=== PATIENT | female | born 1945 | race Caucasian/White ===

== ENCOUNTER 2017-10-11 10:31 | Inpatient (IN) ==
[2017-10-11] MEDS ORDERED: 0.9 % Sodium Chloride 1,000 ML IVC ONE (10:56)
[2017-10-11] MEDS ORDERED: Aspirin 81 MG TAB.CHEW PO ONE (10:56)
[2017-10-11 11:14] LABS: Basophils % 0.5 %; Eosinophils # 0.1 K/mcL (0.0-0.6); Eosinophils % 1.8 %; Hematocrit 45.5 % (35.3-44.9); Immature Granulocytes % 0.3 % (0-4); Immature Platelets 10.5 % (1.1-6.1); Lymphocytes # 1.7 K/mcL (0.6-4.6); Lymphocytes % 26.4 %; Mean Corpuscular Hemoglobin 30.5 pg (28.0-33.3); Mean Corpuscular Volume 92.5 fL (83.0-100.0); Mean Platelet Volume 12.2 fL (9.4-12.4); Monocytes # 0.5 K/mcL (0.0-1.3); Monocytes % 7.7 %; Platelet Count 171 K/mcL (140-400); Red Blood Count 4.92 M/mcL (3.82-4.97); Red Cell Distribution Width 13.2 % (11.5-14.5); Segmented Neutrophils % 63.3 %
[2017-10-11 11:21] LABS: Prothrombin Time 10.9 Seconds (9.4-12.1)
[2017-10-11 11:23] LABS: Activated Partial Thrombo Time 30.6 Seconds (26.0-36.0)
[2017-10-11 11:27] LABS: BUN/Creatinine Ratio 26 (6-26); Blood Urea Nitrogen 22 mg/dL (7-20); Calcium 9.5 mg/dL (8.6-10.8); Carbon Dioxide 23 mEq/L (19-29); Chloride 105 mEq/L (98-109); Glucose 140 mg/dL (70-99); Magnesium 1.9 mg/dL (1.6-2.6); Osmolality,Calculated 292 (280-300); Potassium 4.2 mEq/L (3.5-4.5); Sodium 138 mEq/L (136-145); eGFR For African Americans > 60 (> 60); eGFR For Non-African Americans > 60 (> 60)
--- NOTE | 2017-10-11 11:33 | Emergency Department Note ---
Disposition Clinical Impression: Atrial fibrillation Qualifiers: Atrial fibrillation type: unspecified Qualified Code(s): I48.91 - Unspecified atrial fibrillation Disposition: Admitted As Inpatient Condition: Fair Forms: ED Satisfaction Letter Time of Disposition: 12:14 Arrhythmia/Palpitations HPI - General Chief Complaint: ED Arrhythmia/Palpitations Stated Complaint: A-Fib Time Seen by Provider: 10/11/17 10:40 Source: patient Limitations: no limitations Nursing Notes Reviewed: Yes Vital Signs Reviewed: Yes - History of Present Illness HPI Narrative: 72-year-old female presents to the ED complaining of atrial fibrillation. Patient has never been in this before. She was at her primary care physician's office today just for a wellness visit when they did an EKG and noticed she was in A. fib. Placed here here for further evaluation. Patient states she not complaining of any chest pain. She is having no shortness of breath. 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 She says that she is not having any symptoms no palpitations there is a sent here. She has had any episodes of dizziness or syncope. She has not been nausea vomiting or had any fevers. She has not had any coughing or illnesses leading up to this. Patient is not complaining of any headaches, blurry vision, neck pain, chest pain, shortness of breath, abdominal pain, changes in bowel movements, pain with urination, pain or tingling down the arms or legs, nausea or vomiting, fever, generalized numbness or weakness. - Related Data Home Medications Medication Instructions Recorded Confirmed Lansoprazole [Prevacid] 30 mg PO DAILY 10/11/17 10/11/17 Simvastatin [Zocor] 40 mg PO HS 10/11/17 10/11/17 Valsartan/Hydrochlorothiazide 1 tab PO DAILY 10/11/17 10/11/17 [Diovan Hct 160-12.5 mg Tab] Vit C/E/Zn/Coppr/Lutein/Zeaxan 1 cap PO DAILY 10/11/17 10/11/17 [Preservision Areds 2 Softgel] Allergies Allergy/AdvReac Type Severity Reaction Status Date / Time No Known Allergies Allergy Verified 02/06/17 08:36 Review of Systems: 10 point review of systems done and negative unless otherwise stated in history of present illness. All systems ED: reviewed and negative except as stated. Review of Systems: As Per HPI Constitutional: Denies: fever, chills, weakness, weight change Eyes: Denies: eye pain, eye discharge, vision change Past Medical History - Past Medical History Attestation: Yes The following information was validated with the patient. Medical history: Reports: hyperlipidemia, hypertension Psychiatric history: Reports: no psych history - Social History Smoking Status: Never smoker Smokeless Tobacco Status: No Alcohol use: Reports: rarely Drug use: Reports: none Physical Exam - General Limitations: no limitations General appearance: alert, in no apparent distress - Head Head exam: atraumatic, normocephalic, normal inspection - Eye Eye exam: Present: normal appearance, PERRL, EOMI - ENT ENT exam: normal exam, normal oropharynx, mucous membranes moist - Neck Neck exam: Present: normal inspection, full ROM, trachea midline - Chest Chest inspection: Present: normal inspection, symmetric chest wall rise - Respiratory Respiratory exam: Present: normal lung sounds bilaterally - Cardiovascular Cardiovascular exam: Present: tachycardia, irregular rhythm, normal heart sounds - Abdominal Exam Abdominal exam: Present: soft, Non-Tender. Absent: tenderness, distention, guarding, rebound, rigidity - Extremities Exam Extremities exam: Present: normal inspection, full ROM. Absent: tenderness, pedal edema - Expanded Lower Extremity Exam Neurovascular/Tendon exam: Present: normal capillary refill. Absent: pulse deficit, motor deficit, sensory deficit, tendon deficit Gait: observed and normal - Back Exam Back exam: Present: normal inspection, full ROM. Absent: tenderness, CVA tenderness (R), CVA tenderness (L) - Neurological Exam Neurological exam: Present: alert, oriented X3 - Skin Skin exam: Present: warm Course Course Narrative: 72-year-old female presents to the ED complaining of atrial fibrillation. We will get basic labs including CBC, BMP, troponin, BNP, TSH. We will see a chest x-ray and EKG. This is new onset A. fib so patient most likely will be admitted to the hospitalist service. We will give her a bolus of Cardizem 15 mg here that does not convert her then we will start a Cardizem drip. Patient is okay with this plan. Vital Signs Temperature 98.0 F 10/11/17 10:32 Pulse Rate 145 10/11/17 10:32 Respiratory Rate 18 10/11/17 10:32 Blood Pressure 150/100 10/11/17 10:32 O2 Sat by Pulse Oximetry 98 10/11/17 10:32 Temperature 98.0 F 10/11/17 10:35 Pulse Rate 87 10/11/17 11:35 Respiratory Rate 11 10/11/17 11:35 Blood Pressure 147/84 10/11/17 11:35 O2 Sat by Pulse Oximetry 99 10/11/17 11:35 Oxygen Delivery Oxygen Delivery Room Air Arrhythmia/Palpitations - MDM Narrative Medical decision making narrative: 72-year-old female presents to the ED and atrial fibrillation. This is new onset for her. She has never had this happen to her before. She was at a wellness visit with her primary care physician. She is not complaining of any pain or any chest pain or syncope or dizziness or any symptoms occurring before this. She is having no nausea or vomiting or fevers. At this time we got basic labs she did have an elevated TSH otherwise everything came back normal. EKG did show atrial fibrillation. An chest x-ray was normal. We gave her a 15 mg bolus of Cardizem. She did seem to convert with. Her blood pressure was good after that 130/80. Checking her later EKG she actually was still in atrial fibrillation so we decided to start a Cardizem drip. Patient is okay with this. Patient is admitted to the hospitalist service for further evaluation. I spoke with Dr. Singletary who agreed to admit the patient to their service. Patient is admitted in stable condition. She is on a Cardizem drip at this time. Patient blood pressure is tolerating it well. Chest X-Ray 10/11/17 10:51 IMPRESSION: No acute cardiopulmonary disease D/ / Neil Tobar MD / Neil Tobar MD Interpreting Provider: Neil Tobar MD - Medical Records Medical records reviewed: Yes I reviewed the patient's medical records. - Lab Data Lab results reviewed: Yes I reviewed the patient's lab results. Result diagrams: 10/11/17 11:06 10/11/17 11:06 Lab Results 10/11/17 10/11/17 10/11/17 Range/Units 11:06 11:06 11:06 WBC 6.3 (4.3-11.1) K/mcL RBC 4.92 (3.82-4.97) M/mcL Hgb 15.0 (11.5-15.4) g/dL Hct 45.5 H (35.3-44.9) % MCV 92.5 (83.0-100.0) fL MCH 30.5 (28.0-33.3) pg MCHC 33.0 (31.6-35.5) g/dL RDW 13.2 (11.5-14.5) % Plt Count 171 (140-400) K/mcL MPV 12.2 (9.4-12.4) fL Immature Gran % 0.3 (0-4) % Seg Neutrophils % 63.3 % Lymphocytes % 26.4 % Monocytes % 7.7 % Eosinophils % 1.8 % Basophils % 0.5 % Neutrophils # 4.0 (1.6-8.9) K/mcL Lymphocytes # 1.7 (0.6-4.6) K/mcL Monocytes # 0.5 (0.0-1.3) K/mcL Eosinophils # 0.1 (0.0-0.6) K/mcL Basophils # 0.0 (0.0-0.2) K/mcL Immature Plt Fraction 10.5 H (1.1-6.1) % PT 10.9 (9.4-12.1) Seconds INR 1.0 APTT 30.6 (26.0-36.0) Seconds Sodium 138 (136-145) mEq/L Potassium 4.2 (3.5-4.5) mEq/L Chloride 105 (98-109) mEq/L Carbon Dioxide 23 (19-29) mEq/L BUN 22 H (7-20) mg/dL Creatinine 0.84 (0.57-1.11) mg/dL Est GFR ( Amer) > 60 (> 60) Est GFR (Non-Af Amer) > 60 (> 60) BUN/Creatinine Ratio 26 (6-26) Glucose 140 H (70-99) mg/dL Calculated Osmolality 292 (280-300) Calcium 9.5 (8.6-10.8) mg/dL Magnesium 1.9 (1.6-2.6) mg/dL Troponin I (0-0.03) ng/mL TSH 6.543 H (0.350-4.840) mcIU/mL 10/11/17 Range/Units 11:06 WBC (4.3-11.1) K/mcL RBC (3.82-4.97) M/mcL Hgb (11.5-15.4) g/dL Hct (35.3-44.9) % MCV (83.0-100.0) fL MCH (28.0-33.3) pg MCHC (31.6-35.5) g/dL RDW (11.5-14.5) % Plt Count (140-400) K/mcL MPV (9.4-12.4) fL Immature Gran % (0-4) % Seg Neutrophils % % Lymphocytes % % Monocytes % % Eosinophils % % Basophils % % Neutrophils # (1.6-8.9) K/mcL Lymphocytes # (0.6-4.6) K/mcL Monocytes # (0.0-1.3) K/mcL Eosinophils # (0.0-0.6) K/mcL Basophils # (0.0-0.2) K/mcL Immature Plt Fraction (1.1-6.1) % PT (9.4-12.1) Seconds INR APTT (26.0-36.0) Seconds Sodium (136-145) mEq/L Potassium (3.5-4.5) mEq/L Chloride (98-109) mEq/L Carbon Dioxide (19-29) mEq/L BUN (7-20) mg/dL Creatinine (0.57-1.11) mg/dL Est GFR ( Amer) (> 60) Est GFR (Non-Af Amer) (> 60) BUN/Creatinine Ratio (6-26) Glucose (70-99) mg/dL Calculated Osmolality (280-300) Calcium (8.6-10.8) mg/dL Magnesium (1.6-2.6) mg/dL Troponin I 0.02 (0-0.03) ng/mL TSH (0.350-4.840) mcIU/mL - Radiology Data Radiology results reviewed: Yes I reviewed the patient's radiology results. - EKG Data EKG attestation: Yes I reviewed and interpreted this EKG. EKG results narrative: EKG done at 1039 revealed myself and the attending shows atrial fibrillation with RVR at a rate of 149, QRS 102, QTC 374 with a leftward axis. There is no acute ST changes, no acute T-wave changes. No signs of any heart strain or hypertrophy or any signs of heart block. No signs of WPW/got a syndrome. There is no old EKG comparison this time. We did a second EKG after we thought she converted that showed atrial fibrillation still in RVR but now the rate of 103, QRS 16, QTC 417 with a normal axis there is no other acute changes. This is unchanged other than slowing and rate when compared with earlier EKG. Attestation Statement - Attestation Attestation: I examined this patient and my medical decision-making was reviewed with the Resident Physician. I agree with the documented findings, disposition and treatment plan as described except to the extent set forth below. Patient presents to the ED for atrial fibrillation. Patient was at a well visit with her physician today and they did an EKG and Phenergan atrial fibrillation. They sent her in for evaluation. She denies palpitations or chest pain. On examination she is sitting up in bed in no acute distress. Heart tachycardia and irregularly irregular. Plan. Cardiac workup. Cardizem. Admitted to medicine. 35 minutes of critical care exclusive of separate billable procedures.
[2017-10-11 11:49] LABS: Thyroid Stimulating Hormone 6.543 mcIU/mL (0.350-4.840)
[2017-10-11] MEDS: dilTIAZem HCl 100 MG in D5% in Water 50 ML IVC SCH (12:53)
[2017-10-11] MEDS ORDERED: 0.9 % Sodium Chloride 500 ML ONE (13:10)
--- NOTE | 2017-10-11 14:16 | Electrocardiograph Report ---
[place] [id number] Test Date: 2017-10-11 Pat Name: Etelvina De Souza Department: 103 Room: 2A Gender: F Fitness Director: NEIL : 1945 Requested By: Jose Enrique Proctor Order Number: [id number] Reading MD: Aliyah Young Measurements Intervals [place] Rate: 149 P: [place]: 0 QRS: -26 QRSD: 102 T: 25 QT: 289 QTc: 374 Interpretive Statements ATRIAL FIBRILLATION WITH RAPID VENTRICULAR RESPONSE POSSIBLE ANTERIOR MYOCARDIAL INFARCTION [30 ms Q WAVE IN V3/V4, OR R < 0.2 mV IN V4], OF INDETERMINATE AGE Electronically Signed On 10-11-2017 14:14:02 EST by Aliyah Young
[2017-10-11] MEDS ORDERED: Acetaminophen 325 MG TABLET PO PRN (16:24)
[2017-10-11] MEDS ORDERED: Naloxone 0.4 MG/ML INJ IVP PRN (16:24)
--- NOTE | 2017-10-11 16:52 | Internal Med History&Physical ---
<Leigh Dias - Last Filed: 10/11/17 17:59> Date of Encounter: 10/11/17 Time of Encounter: 16:45 Assessment and Plan (1) Atrial fibrillation Current visit: Yes Status: Acute 1 this appears to be a new onset according patient she thinks she has been in for approximately 6 weeks. Presently asymptomatic. Rate is 100 on Cardizem drip which we will continue for now. I did speak with cardiology concerning starting oral medication recommends continue drip until assessed by cardiology 2 initiate heparin drip- Bo vasc is 3 3 we will obtain cardiac echo 4 consulted cardiology 5 continuous cardiac monitoring 6 we will trend troponins 7 we will check free T4 Qualifiers: Atrial fibrillation type: unspecified Qualified Code(s): I48.91 - Unspecified atrial fibrillation (2) HTN (hypertension) Current visit: No Status: Chronic 1 presently controlled patient is on Cardizem drip we will hold home medications for now Qualifiers: Hypertension type: essential hypertension Qualified Code(s): I10 - Essential (primary) hypertension (3) GERD (gastroesophageal reflux disease) Current visit: No Status: Chronic Continue with Prilosec Qualifiers: Esophagitis presence: esophagitis presence not specified Qualified Code(s) : K21.9 - Gastro-esophageal reflux disease without esophagitis (4) DVT prophylaxis Current visit: Yes Status: Acute Patient is on heparin drip Internal Medicine - H&P: HPI Chief complaint: afib Admitted From: Emergency Dept Plans for Post Hospital Care: Home History of present illness: Ms. De Souza is a 72 year old female past medical history of hypertension GERD. According to the patient she was at her primary care's additions office today for wellness visit EKG was completed and she was noted to be in atrial fibrillation. She is asymptomatic with no chest pain shortness of breath lightheadedness. Patient please she has been in and out of atrial fibrillation for the past 6 weeks. She does monitor her blood pressure and she has noted an elevated heart rate off and on over the past 6 weeks. She has also experienced some lightheadedness during this 6 weeks. Upon presentation to the ER she was in atrial fib RVR with a rate of 130-140. She was initiated on a Cardizem drip which did bring her rate down to 100. She has been admitted for further workup and evaluation. Probably patient continues to be in atrial fibrillation with a rate of 100. She denies any chest pain or shortness of breath. She is hemodynamically stable this time. I did review this case with Dr. singletary who agrees with plan Past Med Surg Social Fam HX - Past Medical History Medical history: hyperlipidemia, hypertension Psychiatric history: no psych history - Past Surgical History Surgical History: , herniorrhaphy - Social History Smoking Status: Never smoker Smokeless Tobacco Status: No Alcohol use: rarely Drug use: none - Family History Mother Living Status: Hx Family Cardiac Disorders: No Hx Family Cancer: Yes Hx Family GI Disorders: Yes Hx Family Musculoskeletal Disorders: Yes (OP) Father Living Status: Cause of : Throat cancer Hx Family Cardiac Disorders: No Hx Family Cancer: Yes Internal Medicine - H&P: Meds Lansoprazole [Prevacid] 30 mg PO DAILY 10/11/17 [History] Simvastatin [Zocor] 40 mg PO HS 10/11/17 [History] Valsartan/Hydrochlorothiazide [Diovan Hct 160-12.5 mg Tab] 1 tab PO DAILY [History] Vit C/E/Zn/Coppr/Lutein/Zeaxan [Preservision Areds 2 Softgel] 1 cap PO DAILY [History] 3 Allergy/AdvReac Type Severity Reaction Status Date / Time No Known Allergies Allergy Verified 02/06/17 08:36 All Systems PM: A 10-system review of systems was performed and is negative for pertinent findings except as documented above in the HPI. - Constitutional Constitutional: no chills, no fever(s), no night sweats - EENT Eyes: no change in vision, no discharge, no pain, no photophobia Nose, mouth and throat: no dysphagia, no nasal discharge, no neck pain, no sore throat - Cardiovascular Cardiovascular ROS IM: no chest pain, no diaphoresis, no dyspnea, no lightheadedness, no palpitations, no syncope - Respiratory Respiratory: no cough, no dyspnea, no wheezing, no excessive phlegm production - Gastrointestinal Gastrointestinal: no abdominal pain, no diarrhea, no hematemesis, no hematochezia, no melena, no nausea, no vomiting - Genitourinary Genitourinary: no change in urinary stream, no dysuria, no flank pain, no hematuria - Musculoskeletal Musculoskeletal ROS IM: no numbness, no tingling - Integumentary Integumentary IM: no rash, no unusual bruising - Neurological Neurological ROS: no confusion, no convulsions, no focal weakness, no numbness, no tingling, no tremor(s) - Hematologic/Lymphatic Hematologic/Lymphatic: no easy bruising - Constitutional Vitals: Temp Pulse Resp BP Pulse Ox 98.4 F 100 18 144/73 97 10/11/17 15:41 10/11/17 15:41 10/11/17 15:41 10/11/17 15:41 10/11/17 15:41 General appearance: Present: A&O X 3 - Head Head exam: Present: atraumatic, normocephalic - Eye Eye exam: Present: PERRL, conjuntiva pink, sclera anicteric Pupils: Present: PERRL - Neck Neck exam general surgery: Present: supple, trachea midline. Absent: lymphadenopathy - Respiratory Respiratory exam: Present: CTAB. Absent: accessory muscle use, rales, rhonchi, wheezes - Cardiovascular Cardiovascular exam: Present: irregular rhythm, +S1, +S2. Absent: diastolic murmur, gallop, rubs, systolic murmur - GI/Abdominal GI/Abdominal exam: Present: normal bowel sounds, soft, no peritoneal signs. Absent: distended, tenderness - Extremities Exam Extremities exam: Present: warm, radial pulses palpable and symmetrical. Absent : calf tenderness, cyanotic, pedal edema - Neurological Exam Neurological exam: Present: CN II-XII intact, oriented X3, no focal deficits. Absent: pronater drift, facial droop, speech deficit - Skin Skin exam: Present: dry, intact Internal Med - H&P Results - Labs CBC & Chem 7: 10/11/17 17:44 10/11/17 11:06 - EKG Data EKG comments: 10/11/17 17:52 Atrial fibrillation with RVR - Diagnostic Studies Other Images Additional comments: Chest X-Ray 10/11/17 10:51 IMPRESSION: No acute cardiopulmonary disease D/ / Neil Tobar MD / Neil Tobar MD Interpreting Provider: Neil Tobar MD <Luis Felipe Singletary P - Last Filed: 10/11/17 18:30> Date of Encounter: 10/11/17 Internal Medicine - H&P: HPI History of present illness: Ms. De Souza is a 72 year old female All Systems PM: A 10-system review of systems was performed and is negative for pertinent findings except as documented above in the HPI. - Constitutional Vitals: Temp Pulse Resp BP Pulse Ox 98.1 F 114 24 138/85 97 10/11/17 17:52 10/11/17 17:52 10/11/17 17:52 10/11/17 17:52 10/11/17 17:52 Internal Med - H&P Results - Labs CBC & Chem 7: 10/11/17 17:44 10/11/17 11:06 Labs: Short CBC 10/11/17 Range/Units 17:44 WBC 7.9 (4.3-11.1) K/mcL Hgb 13.7 (11.5-15.4) g/dL Hct 41.3 (35.3-44.9) % Plt Count 171 (140-400) K/mcL Cardiac Enzymes 10/11/17 Range/Units 16:56 Troponin I 0.03 (0-0.03) ng/mL - Attending Attestation I examined this patient and my medical decision-making was reviewed with the Resident Physician/TABLE TENDER SLUDGE. I agree with the documented findings, disposition and treatment plan as described except to the extent set forth below. 72/female Admitted with atrial fibrillation with rapid ventricular rate. Cardiology on the board. Presently on Cardizem drip/heparin drip. We will follow the recommendation from cardiology.
[2017-10-11] MEDS ORDERED: *HR* Heparin 5,000 UNIT/ML VIAL IVP PRN ×2 (17:00)
[2017-10-11] MEDS ORDERED: *HR* Heparin 5,000 UNIT/ML VIAL IVP ONE (17:00)
[2017-10-11 17:52] LABS: Hematocrit 41.3 % (35.3-44.9); Hemoglobin 13.7 g/dL (11.5-15.4); Mean Corpuscular HGB Conc 33.2 g/dL (31.6-35.5); Mean Corpuscular Hemoglobin 30.8 pg (28.0-33.3); Mean Corpuscular Volume 92.8 fL (83.0-100.0); Mean Platelet Volume 12.2 fL (9.4-12.4); Platelet Count 171 K/mcL (140-400); Red Blood Count 4.45 M/mcL (3.82-4.97); Red Cell Distribution Width 13.1 % (11.5-14.5)
[2017-10-11] MEDS: Heparin 25,000 UNIT/500 ML D5W 25,000 UNIT/500 ML MLS IVC SCH (18:10)
--- NOTE | 2017-10-11 20:40 | Electrocardiograph Report ---
[place] [address] Test Date: 2017-10-11 Pat Name: Etelvina De Souza Department: 102 Room: 2A Gender: F Facility Service Manager: Tyra : 1945 Requested By: Remy Ramos Order Number: [id number] Reading MD: Caleb Mart MD Measurements Intervals [place] Rate: 103 P: [place]: 0 QRS: -24 QRSD: 106 T: 32 QT: 357 QTc: 417 Interpretive Statements ATRIAL FIBRILLATION WITH RAPID VENTRICULAR RESPONSE BORDERLINE LEFT AXIS DEVIATION Electronically Signed On 10-11-2017 20:38:45 EST by Caleb Mart MD
[2017-10-12 00:39] LABS: Basophils # 0.1 K/mcL (0.0-0.2); Basophils % 0.6 %; Eosinophils # 0.1 K/mcL (0.0-0.6); Eosinophils % 1.6 %; Hematocrit 43.2 % (35.3-44.9); Hemoglobin 14.2 g/dL (11.5-15.4); Immature Granulocytes % 0.2 % (0-4); Lymphocytes # 2.7 K/mcL (0.6-4.6); Mean Corpuscular HGB Conc 32.9 g/dL (31.6-35.5); Mean Corpuscular Hemoglobin 30.4 pg (28.0-33.3); Mean Corpuscular Volume 92.5 fL (83.0-100.0); Mean Platelet Volume 12.1 fL (9.4-12.4); Monocytes # 0.6 K/mcL (0.0-1.3); Monocytes % 7.5 %; Neutrophils # 5.1 K/mcL (1.6-8.9); Platelet Count 152 K/mcL (140-400); Red Blood Count 4.67 M/mcL (3.82-4.97); Red Cell Distribution Width 13.3 % (11.5-14.5); Segmented Neutrophils % 59.1 %
[2017-10-12 00:51] LABS: BUN/Creatinine Ratio 22 (6-26); Blood Urea Nitrogen 16 mg/dL (7-20); Calcium 8.7 mg/dL (8.6-10.8); Carbon Dioxide 22 mEq/L (19-29); Chloride 109 mEq/L (98-109); Glucose 112 mg/dL (70-99); Osmolality,Calculated 294 (280-300); Potassium 3.6 mEq/L (3.5-4.5); Sodium 141 mEq/L (136-145); eGFR For African Americans > 60 (> 60); eGFR For Non-African Americans > 60 (> 60)
[2017-10-12 01:05] LABS: Activated Partial Thrombo Time 209.6 Seconds (26.0-36.0)
[2017-10-12 01:20] LABS: Heparin anti-factor XA UFH 0.92 IU/mL (0.30-0.70)
[2017-10-12] MEDS: dilTIAZem HCl 100 MG in D5% in Water 50 ML IVC SCH ×2 (02:46→09:18)
[2017-10-12] MEDS ORDERED: 0.9 % Sodium Chloride 250 ML ONE (10:28)
[2017-10-12] MEDS: Diltiazem CD (24hr) 240 MG CAPSULE PO SCH (11:09)
[2017-10-12] MEDS: Heparin 25,000 UNIT/500 ML D5W 25,000 UNIT/500 ML MLS IVC SCH (12:10)
--- NOTE | 2017-10-12 12:22 | Internal Med Progress Note ---
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 awaiting cardiology consultation f/u 2D echo Qualifiers: Atrial fibrillation type: unspecified Qualified Code(s): I48.91 - Unspecified atrial fibrillation (2) HTN (hypertension) Current Visit: No Status: Chronic Assessment and plan: BP within acceptable range continue home medications Qualifiers: Hypertension type: essential hypertension Qualified Code(s): I10 - Essential (primary) hypertension (3) GERD (gastroesophageal reflux disease) Current Visit: No Status: Chronic Assessment and plan: continue Prevacid Qualifiers: Esophagitis presence: esophagitis presence not specified Qualified Code(s) : K21.9 - Gastro-esophageal reflux disease without esophagitis (4) DVT prophylaxis Current Visit: Yes Status: Acute Assessment and plan: anticoagulated with heparin gtt (5) Morbid obesity with BMI of 45.0-49.9, adult Current Visit: Yes Status: Resolved - Subjective Interval history: Patient seen and examined at bedside. Resting comfortably in bed and reports feeling better since her hospitalization. Denies any palpitations, chest pain at this time. Continues to remain on Cardizem drip. Awaiting cardiology consultation. - Constitutional Vitals: Temp Pulse Resp BP Pulse Ox 98.3 F 96 16 117/73 95 10/12/17 10:47 10/12/17 10:47 10/12/17 10:47 10/12/17 10:47 10/12/17 10:47 General appearance: Present: A&O X 3, morbidly obese, no acute distress, answers questions appropriately - Head Head exam: Present: atraumatic, normocephalic - Eye Eye exam: Present: conjuntiva pink, sclera anicteric - Respiratory Respiratory exam: Present: CTAB. Absent: accessory muscle use, rales, rhonchi, wheezes - Cardiovascular Cardiovascular exam: Present: irregular rhythm, +S1, +S2, tachycardia - GI/Abdominal GI/Abdominal exam: Present: normal bowel sounds, soft, no peritoneal signs. Absent: distended, tenderness - Extremities Exam Extremities exam: Present: warm, radial pulses palpable and symmetrical. Absent : calf tenderness, tenderness - Neurological Exam Neurological exam: Present: alert, oriented X3 - Psychiatric Psychiatric exam: Present: normal affect, normal mood Internal Medicine: Result - Labs CBC & Chem 7: 10/12/17 00:21 10/12/17 00:21 Labs: Short CBC 10/11/17 10/12/17 Range/Units 17:44 00:21 WBC 7.9 8.6 (4.3-11.1) K/mcL Hgb 13.7 14.2 (11.5-15.4) g/dL Hct 41.3 43.2 (35.3-44.9) % Plt Count 171 152 (140-400) K/mcL Neutrophils # 5.1 (1.6-8.9) K/mcL BMP 10/12/17 00:21 Sodium 141 Potassium 3.6 Chloride 109 Carbon Dioxide 22 BUN 16 Creatinine 0.72 Glucose 112 H Calcium 8.7 Cardiac Enzymes 10/11/17 10/11/17 10/12/17 Range/Units 16:56 23:02 06:07 Troponin I 0.03 0.03 0.03 (0-0.03) ng/mL - ABG Interpretation ABG results: PT/INR, D-dimer PT 10.9 Seconds (9.4-12.1) 10/11/17 11:06 Consult Discharge Plan - Plan Referrals: Silvio Joy DO [Primary Care Provider] -
--- NOTE | 2017-10-12 13:25 | Cardiology Consult Note ---
Addendum entered and electronically signed by Rob Huerta CNP 10/12/17 14:48 : TTE completed shows LVEF 60-65%. Mild concentric left ventricular hypertrophy. Normal LV chamber size, wall thickness and function. Indeterminate diastolic function. Normal right ventricular structure and function. Severely dilated left atrium. Mild mitral stenosis. Mean gradient 5 mmHg (HR 107 bpm). No evidence of pulmonary hypertension. Patient back in atrial fibrillation but is rate controlled. Xarelto approved with no co-pay. Continue cardizem for rate control. Out patient f/u will be scheduled with [facility]. Original Note: <Rob Huerta - Last Filed: 10/12/17 13:18> Date of Encounter: 10/12/17 Time of Encounter: 14:18 Assessment and Plan (1) Atrial fibrillation Current Visit: Yes Status: Acute New diagnosis of afib. Reports having elevated HR at home for several weeks. She is asymptomatic. EKG shows afib with HR 103. Converted to NSR this morning. Convert to oral cardizem. TTE pending. TSH is elevated. Hospitalist following. Anticoagulation with coumadin or NOAC indications and adverse effects reviewed. She would like to use a NOAC. Xarelto sent to [facility]. If no concerning finding on ARYA , ok to d/c from cardiology standpoint. Qualifiers: Atrial fibrillation type: unspecified Qualified Code(s): I48.91 - Unspecified atrial fibrillation Discussion w patient/family: The assessment and plan as outlined above was discussed with the patient and/or family members who expressed understanding and agreement. All questions were answered. Thank you for involving us in the care of your patient. Please call with any questions. History of Present Illness Consult date: 10/12/17 Requesting physician: Luis Felipe Singletary Consult reason: New afib Chief complaint: Chest pain History of present illness: Ms. De Souza is a 72 year old female with a history of HTN and GERD who was sent to the ED by her PCP when she was found to have atrial fibrillation with RVR. She denies chest pain, palpitations, SOB, dizziness, or other CV complaints. No previous history of afib. Reports she noted her HR was elevated on her b/p machine at home for several weeks. She was started on cardizem and heaprin gtt and she converted to NSR. Past Med Surg Social Fam HX - Past Medical History Medical history: GERD, hyperlipidemia, hypertension Psychiatric history: no psych history - Past Surgical History Surgical History: , herniorrhaphy - Social History Smoking Status: Never smoker Smokeless Tobacco Status: No Alcohol use: rarely Drug use: none - Family History Mother Living Status: Hx Family Cardiac Disorders: No Hx Family Cancer: Yes Hx Family GI Disorders: Yes Hx Family Musculoskeletal Disorders: Yes (OP) Father Living Status: Cause of : Throat cancer Hx Family Cardiac Disorders: No Hx Family Cancer: Yes Medications and Allergies Lansoprazole [Prevacid] 30 mg PO DAILY 10/11/17 [History] Simvastatin [Zocor] 40 mg PO HS 10/11/17 [History] Valsartan/Hydrochlorothiazide [Diovan Hct 160-12.5 mg Tab] 1 tab PO DAILY [History] Vit C/E/Zn/Coppr/Lutein/Zeaxan [Preservision Areds 2 Softgel] 1 cap PO DAILY [History] Rivaroxaban [Xarelto] 20 mg PO DAILY #30 tablet 10/12/17 [Rx] 3 Allergy/AdvReac Type Severity Reaction Status Date / Time No Known Allergies Allergy Verified 02/06/17 08:36 All Systems Review: A 10-system review of systems was performed and is negative for pertinent findings except as documented above in the HPI. Physical Examination Vital Signs, Last 4 Hours Temp Pulse Resp BP Pulse Ox 10/12/17 10:47 98.3 F 96 16 117/73 95 General: Conversant, No Apparent Distress HEENT: Atraumatic, Normocephaly, Mucus Membranes Moist Neck: No JVD, Normal carotid pulses Cardiac: Reg Rate and Rhythm, Normal S1 and S2, No Murmur Lungs: Normal Breath Sounds, No Wheeze, Rales, Rhonchi Neuro: Alert and responsive, No focal deficits noted Abdomen: Soft, Non-Tender Skin: No rashes noted on visualized skin Musculoskeletal: No Chest Wall Tenderness Extremities: No Clubbing, No Cyanosis, No Edema, Normal Pulses Results 10/12/17 00:21 10/12/17 00:21 Lab Results 10/11/17 10/11/17 10/11/17 16:56 17:44 17:44 WBC 7.9 Hgb 13.7 Hct 41.3 Plt Count 171 APTT 29.9 Sodium Potassium Chloride Carbon Dioxide BUN Creatinine Glucose Calcium Magnesium Troponin I 0.03 10/11/17 10/12/17 10/12/17 23:02 00:21 00:21 WBC 8.6 Hgb 14.2 Hct 43.2 Plt Count 152 APTT 209.6 H* D Sodium Potassium Chloride Carbon Dioxide BUN Creatinine Glucose Calcium Magnesium Troponin I 0.03 10/12/17 10/12/17 10/12/17 00:21 00:21 02:44 WBC Hgb Hct Plt Count APTT 88.6 H D Sodium 141 Potassium 3.6 Chloride 109 Carbon Dioxide 22 BUN 16 Creatinine 0.72 Glucose 112 H Calcium 8.7 Magnesium 1.8 Troponin I 10/12/17 10/12/17 06:07 09:35 WBC Hgb Hct Plt Count APTT 96.3 H Sodium Potassium Chloride Carbon Dioxide BUN Creatinine Glucose Calcium Magnesium Troponin I 0.03 - Imaging and Cardiology Echo: pending - EKG Interpretation EKG results cardiology: personally reviewed Consult Discharge Plan - Plan Referrals: Silvio Joy DO [Primary Care Provider] - Prescriptions: Rivaroxaban [Xarelto] 20 mg PO DAILY #30 tablet <Jakub Benjamin - Last Filed: 10/12/17 15:33> Date of Encounter: 10/12/17 - Attending Attestation I have personally performed a face to face evaluation on this patient. I have reviewed and agree with the care plan. History and Exam by me shows: 1. A fib with RVR, new onset, heart rate response initially controlled with IV diltiazem, converted back to NSR this am, changed to oral diltiazem. Pt is asymptomatic in a fib with heart rates less than 140, very concerning for undetected episodes of a fib, very large LA on echo, will need systemic anticoagulation for primary stroke risk reduction. Discussed options, placed on Xaralto as most cost effective therapeutic option, dc heparin, begin 20 mg with evening meal daily. Pt has not had ischemic evaluation, will arrange as outpatient due to multiple risk factors, reassess at hospital follow up 2. Benign essential hypertension, adequate control on current medications 3. GERD - symptoms controlled on PPI 4. hyperlipidemia - followed by PCP, reports is at goal on simvastatin 40 mg q d. Assessment and Plan Discussion w patient/family: The assessment and plan as outlined above was discussed with the patient and/or family members who expressed understanding and agreement. All questions were answered. Thank you for involving us in the care of your patient. Please call with any questions. History of Present Illness History of present illness: Ms. De Souza is a 72 year old female All Systems Review: A 10-system review of systems was performed and is negative for pertinent findings except as documented above in the HPI. Results 10/12/17 00:21 10/12/17 00:21 Lab Results 10/11/17 10/11/17 10/11/17 16:56 17:44 17:44 WBC 7.9 Hgb 13.7 Hct 41.3 Plt Count 171 APTT 29.9 Sodium Potassium Chloride Carbon Dioxide BUN Creatinine Glucose Calcium Magnesium Troponin I 0.03 10/11/17 10/12/17 10/12/17 23:02 00:21 00:21 WBC 8.6 Hgb 14.2 Hct 43.2 Plt Count 152 APTT 209.6 H* D Sodium Potassium Chloride Carbon Dioxide BUN Creatinine Glucose Calcium Magnesium Troponin I 0.03 10/12/17 10/12/17 10/12/17 00:21 00:21 02:44 WBC Hgb Hct Plt Count APTT 88.6 H D Sodium 141 Potassium 3.6 Chloride 109 Carbon Dioxide 22 BUN 16 Creatinine 0.72 Glucose 112 H Calcium 8.7 Magnesium 1.8 Troponin I 10/12/17 10/12/17 06:07 09:35 WBC Hgb Hct Plt Count APTT 96.3 H Sodium Potassium Chloride Carbon Dioxide BUN Creatinine Glucose Calcium Magnesium Troponin I 0.03
[2017-10-12] MEDS ORDERED: *HR* Rivaroxaban 10 MG TABLET PO SCH (17:00)
[2017-10-13 03:53] LABS: Basophils # 0.1 K/mcL (0.0-0.2); Basophils % 0.6 %; Eosinophils # 0.2 K/mcL (0.0-0.6); Eosinophils % 2.6 %; Hematocrit 42.2 % (35.3-44.9); Immature Granulocytes % 0.3 % (0-4); Lymphocytes # 2.2 K/mcL (0.6-4.6); Lymphocytes % 27.9 %; Mean Corpuscular HGB Conc 33.2 g/dL (31.6-35.5); Mean Corpuscular Hemoglobin 30.7 pg (28.0-33.3); Mean Corpuscular Volume 92.5 fL (83.0-100.0); Mean Platelet Volume 12.1 fL (9.4-12.4); Monocytes # 0.5 K/mcL (0.0-1.3); Monocytes % 6.6 %; Neutrophils # 4.9 K/mcL (1.6-8.9); Platelet Count 166 K/mcL (140-400); Red Blood Count 4.56 M/mcL (3.82-4.97); Red Cell Distribution Width 13.3 % (11.5-14.5)
[2017-10-13 04:08] LABS: BUN/Creatinine Ratio 16 (6-26); Blood Urea Nitrogen 12 mg/dL (7-20); Calcium 9.5 mg/dL (8.6-10.8); Carbon Dioxide 25 mEq/L (19-29); Chloride 108 mEq/L (98-109); Glucose 123 mg/dL (70-99); Magnesium 2.1 mg/dL (1.6-2.6); Osmolality,Calculated 293 (280-300); Phosphorous 3.5 mg/dL (2.3-4.7); Potassium 3.7 mEq/L (3.5-4.5); Sodium 141 mEq/L (136-145); eGFR For African Americans > 60 (> 60); eGFR For Non-African Americans > 60 (> 60)
[2017-10-13] MEDS: Diltiazem CD (24hr) 240 MG CAPSULE PO SCH (08:49)
[2017-10-13] MEDS ORDERED: Valsartan 160 MG TABLET PO SCH ×2 (09:00)
[2017-10-13] MEDS ORDERED: hydroCHLOROthiazide 25 MG TABLET PO SCH (09:00)
[2017-10-13 10:33] VITALS: BP 133/74
--- NOTE | 2017-10-13 10:45 | Discharge Summary ---
<Nikos,Everton - Last Filed: 10/13/17 12:48> Date of Encounter: 10/13/17 Time of Encounter: 08:15 - Discharge Diagnosis (1) Atrial fibrillation Priority: Primary Status: Acute Comments: Patient started on Xarelto 20 mg PO daily Cardizem 240 mg daily Qualifiers: Atrial fibrillation type: unspecified Qualified Code(s): I48.91 - Unspecified atrial fibrillation (2) HTN (hypertension) Priority: Secondary Status: Chronic Comments: Hydrochlorothiazide 12.5 mg by mouth daily. Valsartan 1 mg by mouth daily. Simvastatin 40 mg by mouth at bedtime. Qualifiers: Hypertension type: essential hypertension Qualified Code(s): I10 - Essential (primary) hypertension (3) GERD (gastroesophageal reflux disease) Priority: Secondary Status: Chronic Qualifiers: Esophagitis presence: esophagitis presence not specified Qualified Code(s) : K21.9 - Gastro-esophageal reflux disease without esophagitis (4) DVT prophylaxis Priority: Secondary Status: Acute - Discharge Medications Prescriptions: Diltiazem HCl [Cardizem] 240 mg PO DAILY #30 tablet Rivaroxaban [Xarelto] 20 mg PO DAILY #30 tablet Rivaroxaban [Xarelto] 20 mg PO DAILY #30 tablet Home Medications: Lansoprazole [Prevacid] 30 mg PO DAILY 10/11/17 [History] Simvastatin [Zocor] 40 mg PO HS 10/11/17 [History] Valsartan/Hydrochlorothiazide [Diovan Hct 160-12.5 mg Tab] 1 tab PO DAILY [History] Vit C/E/Zn/Coppr/Lutein/Zeaxan [Preservision Areds 2 Softgel] 1 cap PO DAILY [History] Rivaroxaban [Xarelto] 20 mg PO DAILY #30 tablet 10/12/17 [Rx] Diltiazem HCl [Cardizem] 240 mg PO DAILY #30 tablet 10/13/17 [Rx] Rivaroxaban [Xarelto] 20 mg PO DAILY #30 tablet 10/13/17 [Rx] Allergies/Adverse Reactions: 3 Allergy/AdvReac Type Severity Reaction Status Date / Time No Known Allergies Allergy Verified 02/06/17 08:36 Procedures/tests Complete & Pending: Procedures Performed prior 72 hours Category Date Time Status EV echocardiogram Routine Y 10/12/17 16:31 Completed Date of admission: 10/11/17 16:24 Primary care physician: Silvio Joy, Consults: 10/11/17 16:31 Consult to Cardiology [CONS] Routine Comment: Consulting Provider: Doris Cota Reason for Consult: new onset afib Time Notified: 16:31 Call Completed: Yes Discharging clinician: Everton Knott Anticipated date of discharge: 10/13/17 - Patient Status Disposition: Home, Self-Care Condition: Fair Overall status at discharge: patient is progressing back to baseline - Discharge Instructions Instructions: Atrial Fibrillation (DC) Follow Up With: Silvio Joy, DO [Primary Care Provider] - (Please call and schedule a hospital follow up in 5-7 days from discharge) Forms: ED Satisfaction Letter Additional Instructions: Xarelto 20 mg daily Cardizem 240 mg daily Follow-up with cardiology in the outpatient setting. - Diet and Activity Activity: increase activity as tolerated Diet: advance to your usual diet Hospital course: Ms. De Souza is a 72 year old female with a past medical history of hypertension who presented to the hospital on 10/11/17 for atrial fibrillation. Patient had previously seen her primary care provider that day for a wellness visit. An EKG performed by her PCP revealed atrial fibrillation. She was sent to the hospital for further evaluation. Upon arrival, she did not complain of any chest pain. She denies having shortness of breath. 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 She had no symptoms of palpitations, dizziness, syncope, or diaphoresis. Her lab work was notable for an elevated TSH. Chest x-ray was unremarkable. Upon arrival to the hospital, patient had an elevated pulse at 145 bpm. Her blood pressure was also slightly elevated at 150/100. The rest of the patient's vital signs were within normal limits. Labs were unremarkable with the exception of an elevated glucose at 123. EKG was performed and showed atrial fibrillation with a rate of 149. She was given a 15 mg bolus of Cardizem. Initially, it was believed that she had converted, but a subsequent EKG also demonstrated atrial fibrillation and RVR. The only difference between the first and second EKG was a rate of 103 on the second EKG. Patient was initially anticoagulated with heparin. Vascular score of 4 due to age, female sex, and hypertension history. Heparin was discontinued on . Started on Xarelto 20mg PO daily. Troponin was drawn, was within normal limits of 0.03. Free T4 was checked, and was within normal limits at 0.89. Patient's blood pressure medications were resumed. Cardiology was consulted. TTE demonstrated the following: EF of 60-65%, mild concentric left ventricular hypertrophy, ndeterminant diastolic dysfunction, Severely dilated left atrium, mild mitral stenosis. Cardiology recommended the continuation of Cardizem for rate control. Per cardiology, patient will follow- up with cardiology in the outpatient setting. During her stay in the hospital, patient was asymptomatic the entire time. She never developed any palpitations or chest pain. Denied having any dizziness. On date of discharge, patient physical exam is unremarkable with the exception of an irregular rhythm. Her pulse is 96 bpm. The rest of her vital signs are within normal limits. - Time Spent with Patient Total time spent providing and/or coordinating discharge services: Greater than 30 minutes (42 minutes) - Constitutional Vitals: Temp Pulse Resp BP Pulse Ox 98.1 F 97 18 133/74 97 10/13/17 10:33 10/13/17 10:33 10/13/17 10:33 10/13/17 10:33 10/13/17 10:33 General appearance: Present: A&O X 3, morbidly obese, no acute distress, answers questions appropriately - Head Head exam: Present: atraumatic, normocephalic - Eye Eye exam: Present: PERRL, conjuntiva pink, sclera anicteric Pupils: Present: PERRL - Neck Neck exam general surgery: Present: supple, trachea midline. Absent: lymphadenopathy - Respiratory Respiratory exam: Present: CTAB. Absent: accessory muscle use, rales, rhonchi, wheezes - Cardiovascular Cardiovascular exam: Present: irregular rhythm, tachycardia. Absent: diastolic murmur, gallop, rubs, systolic murmur - Extremities Exam Extremities exam: Present: warm, radial pulses palpable and symmetrical. Absent : calf tenderness, cyanotic, pedal edema - Skin Skin exam: Present: dry, intact <Yevgeniy Braden - Last Filed: 10/13/17 13:16> Date of Encounter: 10/13/17 Procedures/tests Complete & Pending: Procedures Performed prior 72 hours Category Date Time Status EV echocardiogram Routine Y 10/12/17 16:31 Completed Date of admission: 10/11/17 16:24 Primary care physician: Silvio Joy, Consults: 10/11/17 16:31 Consult to Cardiology [CONS] Routine Comment: Consulting Provider: Doris Cota Reason for Consult: new onset afib Time Notified: 16:31 Call Completed: Yes Hospital course: Ms. De Souza is a 72 year old female - Time Spent with Patient Total time spent providing and/or coordinating discharge services: - Constitutional Vitals: Temp Pulse Resp BP Pulse Ox 98.1 F 97 18 133/74 97 10/13/17 10:33 10/13/17 10:33 10/13/17 10:33 10/13/17 10:33 10/13/17 10:33 - Attending Attestation I independently interviewed and examined this pt. I reviewed all labs and studies. I agree with the findings, assessment and plan of Dr. Knott and we discussed this pt in detail. Cardiology reccs appreciated. nubia Schroeder and outpt follow up. I discussed anticoag with this pt. PT stable for discharge.
== END 2017-10-13 13:35 | disposition home or self-care (01) | DRG 309 ==
LOC: EMEROO 10:31 → 2ANU 10:31 → SUATTDRO 16:24
PROVIDERS: ADMIT Registered Nurse; ATTEND Internal Medicine

== ENCOUNTER 2017-12-27 11:17 | Observation (INO) ==
--- NOTE | 2017-12-27 12:33 | History & Physical Report ---
<Genaro Hilton - Last Filed: 12/27/17 12:31> Date of Encounter: 12/27/17 Time of Encounter: 12:31 24 Hour HP Update - Instructions Instructions: If the History and Physical is less than 30 days old and was completed prior to A.M. admission and or procedure and has NOT been updated on calendar day of procedure please complete this update prior to performing procedure. - Update Patient reports changes in Medical Condition: No Changes in examination, assessment, or condition: No Changes in Medication: No - Attending Attestation Please refer to Dr. Romel Young's office eCW encounter dated 12/09/17 as full H& P. PHM of HTN, HLD, DMII, PAF, underwent DCCV 11/10/17. Per pt, stayed in SR for approximately 2 days then went back into A-Fib. Presents for Sotalol initiation 80mg BID. Is also on Cardizem CD 240mg daily and Lopressor 25mg BID. Will decreased Lopressor to 12.5mg BID. Anticoagulated on Xarelto, denies any missed doses in the past 30 days. Check CBC, BMP, Mag. Obtain baseline EKG. Will need monitored for 5 doses, first dose this evening. Daily EKGs to monitor QTc. Will review and discuss with Dr. Romel Young and make changes as necessary. Echo 09/2017 LVEF 60-65%. Mild concentric LVH, severely dilated left atrium, mild MS. <Romel Young - Last Filed: 12/27/17 15:02> Date of Encounter: 12/27/17 - Attending Attestation I have personally performed a face to face evaluation on this patient. I have reviewed and agree with the care plan. History and Exam by me shows: Recrrent AF, here for sotalol.
[2017-12-27 13:08] LABS: Basophils % 0.5 %; Eosinophils # 0.1 K/mcL (0.0-0.6); Eosinophils % 1.3 %; Hematocrit 44.3 % (35.3-44.9); Hemoglobin 14.4 g/dL (11.5-15.4); Immature Granulocytes % 0.3 % (0-4); Immature Platelets 13.6 % (1.1-6.1); Lymphocytes # 1.4 K/mcL (0.6-4.6); Lymphocytes % 18.2 %; Mean Corpuscular HGB Conc 32.5 g/dL (31.6-35.5); Mean Corpuscular Hemoglobin 29.8 pg (28.0-33.3); Mean Corpuscular Volume 91.5 fL (83.0-100.0); Mean Platelet Volume 12.4 fL (9.4-12.4); Monocytes # 0.5 K/mcL (0.0-1.3); Neutrophils # 5.5 K/mcL (1.6-8.9); Platelet Count 188 K/mcL (140-400); Red Blood Count 4.84 M/mcL (3.82-4.97); Red Cell Distribution Width 13.3 % (11.5-14.5); Segmented Neutrophils % 72.7 %
[2017-12-27 13:19] LABS: Calcium 9.4 mg/dL (8.6-10.3); Carbon Dioxide 26 mEq/L (23-29); Chloride 104 mEq/L (98-107); Potassium 4.1 mEq/L (3.5-5.1); Sodium 137 mEq/L (136-145)
[2017-12-27 13:24] LABS: BUN/Creatinine Ratio 23 (6-26); Blood Urea Nitrogen 17 mg/dL (8-23); Glucose 155 mg/dL (70-105); Osmolality,Calculated 289 (280-300); eGFR For African Americans > 60 (> 60); eGFR For Non-African Americans > 60 (> 60)
--- NOTE | 2017-12-27 19:42 | Electrocardiograph Report ---
[place] [address] Test Date: 2017-12-27 Pat Name: Etelvina De Souza Department: 111 Room: 2NE35 Gender: F Ingredient Mixer: MIMI : 1945 Requested By: Genaro Hilton Order Number: [id number] Reading MD: Charline Stokes Measurements Intervals [place] Rate: 99 P: DC: 0 QRS: 0 QRSD: 99 T: 5 QT: 352 QTc: 408 Interpretive Statements ATRIAL FIBRILLATION INFERIOR MYOCARDIAL INFARCTION, PROBABLY OLD Electronically Signed On 12-27-2017 19:40:58 EST by Charline Stokes
--- NOTE | 2017-12-28 08:58 | Electrophysiology ProgressNote ---
Date of Encounter: 12/28/17 Time of Encounter: 08:56 Assessment and Plan (1) Encounter for monitoring anti-arrhythmic therapy Current Visit: Yes Status: Acute PAF, underwent DCCV 11/10/17. Per pt, stayed in SR for approximately 2 days then went back into A-Fib. Presents for Sotalol initiation 80mg BID. Has received 2 doses of Sotalol, remains in A-Fib. Is also on Cardizem CD 240mg daily and Lopressor 25mg BID. Continue. 24 hr tele AVG HR 93, A-Fib. CBC, BMP and Mag from yesterday without acute abnormalities. Baseline EKG 12/27/17 A-Fib, rate 99, QT/QTc 352/408ms. EKG 12/28/17 A-Fib, rate 111, QT/QTc 365/431ms. Will need monitored for 5 doses. Continue Daily EKGs to monitor QTc. If pt remains in A-Fib, will plan for DCCV tomorrow after 4th Sotalol dose in AM. Anticoagulated on Xarelto, denies any missed doses in the past 30 days. No ARYA warranted. Tentative plan is for d/c tomorrow evening after 5th sotalol dose if successfully converted to SR. Will review and discuss with Dr. Romel Young and make changes as necessary. Echo 09/2017 LVEF 60-65%. Mild concentric LVH, severely dilated left atrium, mild MS. (2) PAF (paroxysmal atrial fibrillation) Current Visit: Yes Status: Acute As above--Sotalol 80mg BID, Cardizem CD 240mg daily, Lopressor 25mg BID. Anticoagulated on Xarelto. Discussion w patient/family: The assessment and plan as outlined above was discussed with the patient and/or family members who expressed understanding and agreement. All questions were answered. Thank you for involving us in the care of your patient. Please call with any questions. Subjective Principal diagnosis: PAF Interval history: Pt denies any cardiac complaints this AM--denies chest pain, dyspnea or palpitations. Has received 2 doses of Sotalol, remains in A-Fib. Objective Vital Signs, Last 4 Hours Temp Pulse Resp BP Pulse Ox 12/28/17 08:09 98 F 116 129/89 97 12/28/17 05:39 97.7 F 108 18 127/76 97 Vital Signs Temp Pulse Resp BP Pulse Ox 12/28/17 08:09 98 F 116 129/89 97 12/28/17 05:39 97.7 F 108 18 127/76 97 12/28/17 00:53 97.9 F 78 18 102/77 94 12/27/17 21:46 97.8 F 89 16 122/84 97 12/27/17 15:59 98.3 F 94 18 121/89 98 Intake and Output 12/27/17 12/28/17 12/28/17 23:59 07:59 15:59 Intake Total 50 / 50 0 / 0 Balance 50 / 50 0 / 0 Intake: Oral 50 / 50 0 / 0 Other: # Voids 0 1 Weight 130.8 kg Patient Weight 12/28/17 23:59 Weight 130.8 kg General: Conversant, No Apparent Distress HEENT: Atraumatic, Normocephaly, Mucus Membranes Moist Neck: No JVD, Normal carotid pulses Cardiac: Other (irregularly irregular) Lungs: Normal Breath Sounds, No Wheeze, Rales, Rhonchi Neuro: Alert and responsive, No focal deficits noted Abdomen: Soft, Non-Tender Skin: No rashes noted on visualized skin Musculoskeletal: No Chest Wall Tenderness Extremities: No Clubbing, No Cyanosis, No Edema, Normal Pulses Results 12/27/17 13:01 12/27/17 13:01 Lab Results 12/27/17 12/27/17 12/27/17 13:01 13:01 13:01 WBC 7.6 Hgb 14.4 Hct 44.3 Plt Count 188 Sodium 137 Potassium 4.1 Chloride 104 Carbon Dioxide 26 BUN 17 Creatinine 0.75 Glucose 155 H Calcium 9.4 Magnesium 1.9 Short CBC 12/27/17 Range/Units 13:01 WBC 7.6 (4.3-11.1) K/mcL Hgb 14.4 (11.5-15.4) g/dL Hct 44.3 (35.3-44.9) % Plt Count 188 (140-400) K/mcL Neutrophils # 5.5 (1.6-8.9) K/mcL BMP 12/27/17 Range/Units 13:01 Sodium 137 (136-145) mEq/L Potassium 4.1 (3.5-5.1) mEq/L Chloride 104 (98-107) mEq/L Carbon Dioxide 26 (23-29) mEq/L BUN 17 (8-23) mg/dL Creatinine 0.75 (0.60-1.20) mg/dL Glucose 155 H (70-105) mg/dL Calcium 9.4 (8.6-10.3) mg/dL Active Medications Atorvastatin Calcium (Lipitor) 10 mg PO QPM PENDING SALE TO [facility] Stop: 06/28/18 18:01 Last Admin: 12/27/17 16:57 Dose: 10 mg Diltiazem HCl (Cardizem Cd) 240 mg PO DAILY TAMMY Stop: 06/29/18 09:01 Hydrochlorothiazide (Hydrochlorothiazide) 12.5 mg PO DAILY PENDING [facility]ALE TO [facility] Stop: 06/29/18 09:01 Lansoprazole (Prevacid) 30 mg PO DAILY PENDING SALE TO [facility] PRN Reason: Protocol Stop: 06/29/18 09:01 Metoprolol Tartrate (Lopressor) 25 mg PO BID PENDING S[facility] TO [facility] Stop: 06/28/18 21:01 Last Admin: 12/27/17 21:27 Dose: 25 mg Rivaroxaban (Xarelto) 20 mg PO DAILY PENDING SALE TO [facility] Stop: 06/29/18 09:01 Sotalol HCl (Betapace) 80 mg PO Q12HR TAMMY Stop: 06/28/18 18:01 Last Admin: 12/28/17 06:34 Dose: 80 mg Valsartan (Diovan) 160 mg PO DAILY PENDING SALE TO [facility] Stop: 06/29/18 09:01 - EKG Interpretation EKG results cardiology: personally reviewed, other (24 hr tele AVG HR 93, A-Fib) - VTE Reasons for not Prescribing Prophylaxis: Not indicated-Anticoagulated or INR therapeutic Consult Discharge Plan - Plan Referrals: Silvio Joy DO [Primary Care Provider] -
[2017-12-28] MEDS ORDERED: NON-FORMULARY MEDICATION 1 EACH EACH (Valsartan/Hydrochlorothiazide [Diovan Hct 160-12.5 M PO SCH (09:00)
[2017-12-28] MEDS: *HR* Rivaroxaban 10 MG TABLET PO SCH (11:21)
[2017-12-28] MEDS: Diltiazem CD (24hr) 240 MG CAPSULE PO SCH (11:22)
[2017-12-28] MEDS: hydroCHLOROthiazide 25 MG TABLET PO SCH (11:22)
[2017-12-28] MEDS: Valsartan 160 MG TABLET PO SCH (11:22)
--- NOTE | 2017-12-28 12:38 | Electrocardiograph Report ---
[address] [place] [address] Test Date: 2017-12-28 Pat Name: Etelvina De Souza Department: 111 Room: 2NE35 Gender: F [employer] Director: [id number] : 1945 Requested By: Genaro Hilton Order Number: [id number] Reading MD: Charline Stokes Measurements Intervals [place] Rate: 111 P: SC: 0 QRS: -12 QRSD: 125 T: 32 QT: 365 QTc: 431 Interpretive Statements ATRIAL FIBRILLATION WITH RAPID VENTRICULAR RESPONSE INFERIOR MYOCARDIAL INFARCTION, PROBABLY OLD Electronically Signed On 12-28-2017 12:36:53 EST by Charline Stokes
[2017-12-29 08:09] VITALS: BP 120/71
[2017-12-29] MEDS: *HR* Rivaroxaban 10 MG TABLET PO SCH (09:41)
[2017-12-29] MEDS: Diltiazem CD (24hr) 240 MG CAPSULE PO SCH (09:41)
[2017-12-29] MEDS: Valsartan 160 MG TABLET PO SCH (09:41)
[2017-12-29] MEDS: hydroCHLOROthiazide 25 MG TABLET PO SCH (09:41)
--- NOTE | 2017-12-29 10:10 | Event Note ---
Date of Encounter: 12/29/17 Time of Encounter: 10:08 - Cardiology Event Note Pt remains in A-Fib s/p 4 Sotalol doses. QTc stable. Denies any missed doses of Xarelto in the past 30 days. Plan for DCCV today. If successful conversion to SR , plan to d/c home after 5th sotalol dose this evening.
--- NOTE | 2017-12-29 12:03 | Pre-Sedation Evaluation ---
Pre-sedation evaluation - Pre-sedation checklist Date of procedure: 12/29/17 Procedure: cardioversion Recent Vitals: Last Vital Signs Temp 97.6 F 12/29/17 03:43 Pulse 88 12/29/17 08:00 Resp 16 12/29/17 08:00 BP 120/71 12/29/17 08:00 Pulse Ox 97 12/29/17 08:00 H&P (including ROS) documented in medical record: Yes Previous reaction to sedatives/anesthetics: No Dietary Status: NPO after Midnight Airway Assessment: Patient can open mouth completely, TMJ function normal, Micrognathia (under-bite, receding chin) absent Dentition: No loose teeth or bridges Possible difficult airway: No ASA Classification *see protocol: CLASS II-Mild systemic disease Plan of Care: Pt appropriate candidate for procedure/moderate/conscious sedation , Risks/benefits of procedure/sedation discussed w/ patient/family
[2017-12-29] MEDS ORDERED: *HR* FentaNYL (PF) 100 MCG/2 ML VIAL ONE ×2 (12:04→12:18)
[2017-12-29] MEDS ORDERED: *HR* Midazolam HCl 5 MG/5 ML VIAL IVP ONE (12:05)
[2017-12-29] MEDS ORDERED: *HR* Midazolam HCl 2 MG/2 ML VIAL ONE ×2 (12:18→12:32)
[2017-12-29] MEDS ORDERED: 0.9 % Sodium Chloride 1,000 ML ONE (12:20)
--- NOTE | 2017-12-29 13:43 | Discharge Summary ---
Date of Encounter: 12/29/17 Time of Encounter: 13:41 - Discharge Diagnosis (1) Encounter for monitoring anti-arrhythmic therapy Priority: Primary Status: Acute (2) PAF (paroxysmal atrial fibrillation) Priority: Primary Status: Acute - Discharge Medications Prescriptions: Metoprolol [Lopressor] 50 mg PO BID #60 tablet Home Medications: Lansoprazole [Prevacid] 30 mg PO DAILY 10/11/17 [History] Valsartan/Hydrochlorothiazide [Diovan Hct 160-12.5 mg Tab] 1 tab PO DAILY [History] Diltiazem HCl [Cardizem] 240 mg PO DAILY #30 tablet 10/13/17 [Rx] Rivaroxaban [Xarelto] 20 mg PO DAILY #30 tablet 10/13/17 [Rx] Simvastatin [Zocor] 10 mg PO QPM 12/27/17 [History] Metoprolol [Lopressor] 50 mg PO BID #60 tablet 12/29/17 [Rx] Allergies/Adverse Reactions: 3 Allergy/AdvReac Type Severity Reaction Status Date / Time No Known Allergies Allergy Verified 02/06/17 08:36 Procedures/tests Complete & Pending: Procedures Performed prior 72 hours Category Date Time Status CL Cardioversion [CL] Routine [employer] Agent 12/29/17 09:16 Ordered EKG [ECG 12 lead ECG] [ECG] AM 0600 Y 12/28/17 06:00 Completed EKG [ECG 12 lead ECG] [ECG] AM 0600 Y 12/29/17 06:00 Completed EKG [ECG 12 lead ECG] [ECG] Stat Y 12/27/17 12:42 Completed Date of admission: 12/27/17 11:17 Primary care physician: Silvio Joy, Discharging clinician: Genaro Hilton Anticipated date of discharge: 12/29/17 - Patient Status Disposition: Home, Self-Care Condition: Fair Functional capacity at discharge: independent ambulation Overall status at discharge: patient is progressing back to baseline - Discharge Instructions Follow Up With: Silvio Joy DO [Primary Care Provider] - - Diet and Activity Activity: increase activity as tolerated Diet: low fat, low cholesterol - Hospital Course Hospital course: Ms. De Souza is a 72 year old female with PHM of HTN, HLD, DMII, PAF that Presented as direct admission for Sotalol initiation 80mg BID. Anticoagulated on Xarelto. Pt received 4 doses of Sotalol 80mg BID, stable QTc, attempted DCCV today, which was unsuccessful. First attempt 360J pt converted to SR very briefly, back in A-Fib. Second attempt 360J pt stayed in A-Fib. Echo severely dilated left atrium. Pt also underwent DCCV in October 2017 and reportedly stayed in SR for [address] Romel Young and with pt. Gave pt option of rate control and anticoagulation strategy vs staying for 2 more days and increasing Sotalol dose with possibility of another DCCV. Pt elects rate control strategy. Will stop Sotalol. Increase Lopressor to 50mg BID. Continue Cardizem CD 240mg daily. Continue Xarelto for anticoagulation. Labs and vitals have been stable during hospitalization. No acute cardiac complaints. Pt being discharged home in stable condition. Will coordinate outpt follow-up in 2 weeks. - Time Spent with Patient Total time spent providing and/or coordinating discharge services: Less than 30 minutes Physical Examination Vital Signs Temp Pulse Resp BP Pulse Ox 12/29/17 08:00 88 16 120/71 97 12/29/17 03:43 97.6 F 87 18 110/82 97 12/28/17 22:30 97.9 F 79 16 126/85 97 12/28/17 21:11 77 116/83 12/28/17 19:52 95 12/28/17 16:49 90 122/88 Intake and Output 12/28/17 12/29/17 12/29/17 23:59 07:59 15:59 Intake Total 0 / 0 50 / 50 Balance 0 / 0 50 / 50 Intake: Oral 0 / 0 50 / 50 Other: # Voids 2 2 Weight 130.8 kg Patient Weight 12/29/17 23:59 Weight 130.8 kg General: Conversant, No Apparent Distress HEENT: Atraumatic, Normocephaly, Mucus Membranes Moist Neck: No JVD, Normal carotid pulses Cardiac: Other (irregularly irregular) Lungs: Normal Breath Sounds, No Wheeze, Rales, Rhonchi Neuro: Alert and responsive, No focal deficits noted Abdomen: Soft, Non-Tender Skin: No rashes noted on visualized skin Musculoskeletal: No Chest Wall Tenderness Extremities: No Clubbing, No Cyanosis, No Edema, Normal Pulses - VTE Reasons for not Prescribing Prophylaxis: Not indicated-Anticoagulated or INR therapeutic
--- NOTE | 2017-12-29 20:30 | Electrocardiograph Report ---
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
== END 2017-12-29 17:54 | disposition home or self-care (01) ==
LOC: INTOOBSV 11:17 → 2NENU 11:17
PROVIDERS: ADMIT Internal Medicine Clinical Cardiac Electrophysiology; ATTEND Internal Medicine Clinical Cardiac Electrophysiology

== ENCOUNTER 2022-02-25 15:54 | Inpatient (IN) ==
[2022-02-25] MEDS ORDERED: Ondansetron 4 MG/2 ML VIAL IVP ONE (17:32)
[2022-02-25] MEDS ORDERED: Isovue-370 500 ML BOTTLE IVP ONE (17:34)
[2022-02-25 17:54] LABS: Hematocrit 42.7 % (35.3-44.9); Hemoglobin 14.1 g/dL (11.5-15.4); Mean Corpuscular Hemoglobin 31.1 pg (28.0-33.3); Mean Corpuscular Volume 94.1 fL (83.0-100.0); Mean Platelet Volume 11.9 fL (9.4-12.4); Platelet Count 130 K/mcL (140-400); Red Blood Count 4.54 M/mcL (3.82-4.97); Red Cell Distribution Width 13.8 % (11.5-14.5); White Blood Count 4.4 K/mcL (4.3-11.1)
[2022-02-25] MEDS ORDERED: Morphine Sulfate 2 MG/ML SYRINGE IVP ONE (18:01)
[2022-02-25] MEDS ORDERED: methocarbamoL 500 MG TABLET PO ONE (18:02)
[2022-02-25 18:13] LABS: Alanine Aminotransferase 218 Units/L (7-52); Albumin 4.1 g/dL (3.5-5.7); Albumin/Globulin Ratio 1.4 (1.1-2.2); Alkaline Phosphatase 230 Units/L (34-104); Aspartate Amino Transferase 153 Units/L (13-39); BUN/Creatinine Ratio 19 (6-26); Blood Urea Nitrogen 25 mg/dL (8-23); Calcium 9.7 mg/dL (8.6-10.3); Carbon Dioxide 20 mEq/L (23-29); Chloride 100 mEq/L (98-107); Globulin 2.9 g/dL (2.4-3.5); Glucose 81 mg/dL (70-105); Osmolality,Calculated 287 (280-300); Potassium 3.3 mEq/L (3.5-5.1); Sodium 137 mEq/L (136-145); Troponin I 0.17 ng/mL (< 0.04); eGFR For African Americans 47 (> 60); eGFR For Non-African Americans 39 (> 60)
[2022-02-25 18:14] LABS: Ethanol < 10 mg/dL (Less than 10); Lipase 7 Units/L (11-82); Magnesium 1.4 mg/dL (1.6-2.6)
[2022-02-25 18:40] LABS: Large Platelets Present (Not Present); Lymphocytes # 0.1 K/mcL (0.6-4.6); Neutrophils # 3.9 K/mcL (1.6-8.9); Platelet Estimate Slight Decrease (Normal)
[2022-02-25 19:36] LABS: Bacteria,Urine Few per hpf (None-Few); Bilirubin,Urine Small (Negative); Blood,Urine Trace (Negative); Clarity,Urine Turbid (Clear); Color,Urine Dark-Yellow (Yellow); Glucose,Urine (UA) Normal (Normal); Hyaline Casts,Urine Few per lpf (None Seen); Ketones,Urine Negative (Negative); Leukocyte Esterase,Urine Trace (Negative); Mucus,Urine Few per lpf (None-Few); Nitrite,Urine Negative (Negative); Protein,Urine 70 mg/dL (Neg-Trace); RBC,Urine 0-3 per hpf (0-3); Renal Epithelial Cells,Urine Few per hpf (None-Few); Specific Gravity,Urine 1.018 (1.010-1.025); Squamous Epithelial Cell,Urine Few per hpf (None-Few); Transitional Epi Cells,Urine Few per hpf (None-Few); Urobilinogen,Urine Normal (Normal); WBC,Urine 30-50 per hpf (0-3)
[2022-02-25 19:42] LABS: Amphetamine Screen,Urine Negative ng/mL (Cutoff=1000); Barbiturate Screen,Urine Negative ng/mL (Cutoff=200); Benzodiazepines Screen,Urine Negative ng/mL (Cutoff=200); Cannabinoid Screen,Urine Negative ng/mL (Cutoff = 50); Cocaine Screen,Urine Negative ng/mL (Cutoff= 300); Opiate Screen,Urine Negative ng/mL (Cutoff=300); Phencyclidine Screen,Urine Negative ng/mL (Cutoff=25)
[2022-02-25 19:52] LABS: INR 2.6; Prothrombin Time 29.2 Seconds (9.4-12.1)
[2022-02-25] MEDS ORDERED: Vancomycin 2,000 MG/520 ML IV.SOLN IVPB ONE (20:00)
[2022-02-25] MEDS ORDERED: Piperacillin/Tazobactam 3.375 GM in 0.9 % Sodium Chloride Mini Bag 100 ML IVPB ONE (20:00)
[2022-02-25 20:03] LABS: Hepatitis B Surface Antigen Nonreactive (Nonreactive)
[2022-02-25] MEDS ORDERED: 0.9 % Sodium Chloride 1,000 ML IVC ONE ×2 (20:04→21:49)
[2022-02-25 20:32] LABS: Hepatitis B Core IgM Nonreactive (Nonreactive); Hepatitis C Virus Antibody Nonreactive (Nonreactive)
[2022-02-25 20:34] LABS: Hepatitis A Antibody IgM Nonreactive (Nonreactive)
[2022-02-25 21:39] LABS: Adenovirus Not Detected (Not Detect); Bordetella Pertussis Not Detected (Not Detect); Chlamydophila pneumoniae Not Detected (Not Detect); Coronavirus 229E Not Detected (Not Detect); Coronavirus HKU1 Not Detected (Not Detect); Coronavirus NL63 Not Detected (Not Detect); Coronavirus OC43 Not Detected (Not Detect); Human Metapneumovirus Not Detected (Not Detect); Human Rhinovirus/Enterovirus Not Detected (Not Detect); Influenza A Subtype 2009 H1 Not Detected (Not Detect); Influenza B Not Detected (Not Detect); Mycoplasma pneumoniae Not Detected (Not Detect); Parainfluenza Virus 1 Not Detected (Not Detect); Parainfluenza Virus 2 Not Detected (Not Detect); Parainfluenza Virus 3 Not Detected (Not Detect); Parainfluenza Virus 4 Not Detected (Not Detect); Respiratory Syncytial Virus Not Detected (Not Detect); SARS-CoV-2 Not Detected (Not Detect)
[2022-02-25] MEDS ORDERED: Ondansetron ODT 4 MG TAB.RAPDIS SL PRN (23:07)
[2022-02-25] MEDS ORDERED: Melatonin 3 MG TABLET PO PRN (23:07)
[2022-02-25] MEDS ORDERED: Acetaminophen 325 MG TABLET PO PRN (23:07)
[2022-02-25] MEDS ORDERED: Naloxone 0.4 MG/ML INJ IVP PRN (23:07)
[2022-02-25] MEDS ORDERED: 0.9 % Sodium Chloride 250 ML ONE ×2 (23:48→23:57)
[2022-02-26] MEDS ORDERED: Ringers Solution, Lactated 1,000 ML IVC SCH (02:15)
[2022-02-26 04:39] LABS: Hematocrit 36.2 % (35.3-44.9); Lymphocytes % 2.1 %; Mean Corpuscular Volume 97.6 fL (83.0-100.0); Red Blood Count 3.71 M/mcL (3.82-4.97); Red Cell Distribution Width 14.6 % (11.5-14.5)
[2022-02-26 04:41] LABS: Basophils % 0.1 %; Hemoglobin 11.5 g/dL (11.5-15.4); Immature Platelets 15.5 % (1.1-6.1); Lymphocytes # 0.5 K/mcL (0.6-4.6); Mean Corpuscular HGB Conc 31.8 g/dL (31.6-35.5); Mean Platelet Volume 13.1 fL (9.4-12.4); Monocytes # 1.1 K/mcL (0.0-1.3); Monocytes % 4.5 %; Neutrophils # 21.1 K/mcL (1.6-8.9); Segmented Neutrophils % 90.3 %; White Blood Count 23.4 K/mcL (4.3-11.1)
[2022-02-26 04:43] LABS: Platelet Count 94 K/mcL (140-400)
[2022-02-26 04:47] LABS: INR 2.4; Prothrombin Time 26.4 Seconds (9.4-12.1)
[2022-02-26 04:50] LABS: Activated Partial Thrombo Time 41.1 Seconds (26.0-36.0)
[2022-02-26 04:59] LABS: Acetaminophen < 10 mcg/mL (10-20); Salicylate < 2.5 mg/dL (15.0-30.0)
[2022-02-26 05:00] LABS: Magnesium 1.3 mg/dL (1.6-2.6); Phosphorous 4.8 mg/dL (2.7-4.5)
[2022-02-26 05:05] LABS: Albumin 3.4 g/dL (3.5-5.7); Albumin/Globulin Ratio 1.3 (1.1-2.2); Bilirubin,Direct 2.8 mg/dL (0.0-0.2); Bilirubin,Indirect 3.1 mg/dL (0.0-1.0); Bilirubin,Total 5.9 mg/dL (0.3-1.0); Chol/HDL Ratio 3.5 (0-4.9); Globulin 2.6 g/dL (2.4-3.5); Troponin I 0.28 ng/mL (< 0.04)
[2022-02-26] MEDS ORDERED: Perflutren Lipid Microsphere 1.3 ML in 0.9 % Sodium Chloride 8.7 ML IVP PRN (05:30)
[2022-02-26] MEDS ORDERED: Levalbuterol Neb 1.25 MG/3 ML IH PRN (05:31)
[2022-02-26 05:57] LABS: Thyroid Stimulating Hormone 4.191 mcIU/mL (0.340-5.600)
[2022-02-26] MEDS: Piperacillin/Tazobactam 3.375 GM in 0.9 % Sodium Chloride Mini Bag 100 ML IVPB SCH ×3 (06:09→19:58)
[2022-02-26] MEDS ORDERED: 0.9 % Sodium Chloride 250 ML ONE (08:45)
[2022-02-26 09:12] LABS: Calcium 8.3 mg/dL (8.6-10.3); Potassium 3.5 mEq/L (3.5-5.1); Troponin I 0.22 ng/mL (< 0.04)
[2022-02-26] MEDS: DilTIAZem CD (24hr) 240 MG CAP.ER.24H PO SCH (09:55)
[2022-02-26 10:07] LABS: Calcium 8.4 mg/dL (8.6-10.3); Potassium 3.6 mEq/L (3.5-5.1)
[2022-02-26] MEDS ORDERED: *HR* Phytonadione 5 MG TABLET PO ONE (12:44)
[2022-02-26] MEDS: 0.9 % Sodium Chloride 1,000 ML IVC SCH (13:37)
[2022-02-26 19:50] LABS: INR 1.7; Prothrombin Time 18.5 Seconds (9.4-12.1)
[2022-02-26] MEDS: Vancomycin 1,500 MG/265 ML IV.SOLN IVPB SCH (20:01)
[2022-02-27] MEDS: 0.9 % Sodium Chloride 1,000 ML IVC SCH ×3 (01:53→18:00)
[2022-02-27] MEDS: Piperacillin/Tazobactam 3.375 GM in 0.9 % Sodium Chloride Mini Bag 100 ML IVPB SCH ×3 (05:58→21:13)
[2022-02-27 06:27] LABS: Creatinine,Urine 130 mg/dL; Protein/Creatinine Ratio,Urine 0.76 mg/mg (0.00-0.20)
[2022-02-27 06:30] LABS: Sodium, Urine 72.1 mEq/L
[2022-02-27 06:51] LABS: Basophils % 0.2 %; Eosinophils # 0.2 K/mcL (0.0-0.6); Eosinophils % 1.6 %; Hematocrit 36.1 % (35.3-44.9); Lymphocytes # 0.8 K/mcL (0.6-4.6); Lymphocytes % 6.2 %; Mean Corpuscular HGB Conc 33.2 g/dL (31.6-35.5); Mean Corpuscular Hemoglobin 30.9 pg (28.0-33.3); Monocytes # 0.8 K/mcL (0.0-1.3); Monocytes % 5.7 %; Neutrophils # 11.4 K/mcL (1.6-8.9); Platelet Count 101 K/mcL (140-400); Red Blood Count 3.88 M/mcL (3.82-4.97); Red Cell Distribution Width 14.6 % (11.5-14.5); Segmented Neutrophils % 85.3 %; White Blood Count 13.3 K/mcL (4.3-11.1)
[2022-02-27 07:02] LABS: INR 1.3; Prothrombin Time 14.5 Seconds (9.4-12.1)
[2022-02-27] MEDS ORDERED: Lidocaine HCL 4 ML Topical Solution (Laryng-O-Jet Kit Sterile Pak) TP ONE (07:08)
[2022-02-27] MEDS ORDERED: *HR* Succinylcholine 200 MG/10 ML VIAL IVP ONE (07:09)
[2022-02-27] MEDS ORDERED: *HR* FentaNYL (PF) 100 MCG/2 ML VIAL ONE (07:09)
[2022-02-27] MEDS ORDERED: Lidocaine -MPF 2% 2 ML VIAL ONE (07:09)
[2022-02-27] MEDS ORDERED: Ondansetron 4 MG/2 ML VIAL ONE (07:09)
[2022-02-27] MEDS ORDERED: *HR* Propofol 200 MG/20 ML VIAL IVP ONE (07:09)
[2022-02-27 07:12] LABS: Alanine Aminotransferase 100 Units/L (7-52); Albumin 3.7 g/dL (3.5-5.7); Albumin/Globulin Ratio 1.2 (1.1-2.2); Alkaline Phosphatase 122 Units/L (34-104); Aspartate Amino Transferase 49 Units/L (13-39); BUN/Creatinine Ratio 21 (6-26); Bilirubin,Total 4.4 mg/dL (0.3-1.0); Blood Urea Nitrogen 19 mg/dL (8-23); Calcium 8.9 mg/dL (8.6-10.3); Carbon Dioxide 25 mEq/L (23-29); Chloride 101 mEq/L (98-107); Glucose 124 mg/dL (70-105); Osmolality,Calculated 286 (280-300); Potassium 3.3 mEq/L (3.5-5.1); Sodium 136 mEq/L (136-145); Total Protein 6.7 g/dL (6.4-8.9); eGFR For African Americans > 60 (> 60); eGFR For Non-African Americans 60 (> 60)
[2022-02-27] MEDS: DilTIAZem CD (24hr) 240 MG CAP.ER.24H PO SCH (07:59)
[2022-02-27] MEDS: Multivit/Ca/Min/Fe/FA 1 TAB TABLET PO SCH (08:15)
[2022-02-27] MEDS ORDERED: Ondansetron 4 MG/2 ML VIAL IVP PRN (08:45)
[2022-02-27] MEDS ORDERED: *HR* Rocuronium Bromide 50 MG/5 ML VIAL ONE (10:42)
[2022-02-27] MEDS ORDERED: *HR* Phenylephrine 10 MG/ML VIAL ONE (10:47)
[2022-02-27] MEDS: Vancomycin 1,500 MG/265 ML IV.SOLN IVPB SCH (21:14)
[2022-02-28 02:57] LABS: Basophils % 0.2 %; Hematocrit 35.4 % (35.3-44.9); Hemoglobin 11.8 g/dL (11.5-15.4); Immature Granulocytes % 1.1 % (0-4); Lymphocytes # 0.6 K/mcL (0.6-4.6); Lymphocytes % 6.4 %; Mean Corpuscular HGB Conc 33.3 g/dL (31.6-35.5); Mean Corpuscular Hemoglobin 30.9 pg (28.0-33.3); Mean Corpuscular Volume 92.7 fL (83.0-100.0); Mean Platelet Volume 12.9 fL (9.4-12.4); Monocytes # 0.5 K/mcL (0.0-1.3); Monocytes % 5.2 %; Neutrophils # 7.8 K/mcL (1.6-8.9); Platelet Count 106 K/mcL (140-400); Red Blood Count 3.82 M/mcL (3.82-4.97); Red Cell Distribution Width 14.5 % (11.5-14.5); Segmented Neutrophils % 87.1 %; White Blood Count 8.9 K/mcL (4.3-11.1)
[2022-02-28 03:18] LABS: Alanine Aminotransferase 75 Units/L (7-52); Albumin 3.4 g/dL (3.5-5.7); Albumin/Globulin Ratio 1.1 (1.1-2.2); Alkaline Phosphatase 105 Units/L (34-104); Aspartate Amino Transferase 29 Units/L (13-39); BUN/Creatinine Ratio 18 (6-26); Bilirubin,Indirect 1.8 mg/dL (0.0-1.0); Bilirubin,Total 2.8 mg/dL (0.3-1.0); Blood Urea Nitrogen 14 mg/dL (8-23); Calcium 8.7 mg/dL (8.6-10.3); Carbon Dioxide 24 mEq/L (23-29); Chloride 103 mEq/L (98-107); Globulin 3.2 g/dL (2.4-3.5); Glucose 184 mg/dL (70-105); Osmolality,Calculated 289 (280-300); Potassium 3.8 mEq/L (3.5-5.1); Sodium 137 mEq/L (136-145); Total Protein 6.6 g/dL (6.4-8.9); eGFR For African Americans > 60 (> 60); eGFR For Non-African Americans > 60 (> 60)
[2022-02-28] MEDS: Piperacillin/Tazobactam 3.375 GM in 0.9 % Sodium Chloride Mini Bag 100 ML IVPB SCH ×4 (04:41→20:18)
[2022-02-28] MEDS: 0.9 % Sodium Chloride 1,000 ML IVC SCH (04:41)
[2022-02-28] MEDS ORDERED: Ondansetron 4 MG/2 ML VIAL IVP PRN (07:00)
[2022-02-28] MEDS ORDERED: *HR* HYDROmorphone PF 0.5 MG/0.5 ML SYRINGE IVP PRN (07:00)
[2022-02-28] MEDS ORDERED: Lidocaine -MPF 4% 5 ML AMPUL ONE (07:14)
[2022-02-28] MEDS ORDERED: *HR* Propofol 200 MG/20 ML VIAL IVP ONE (07:16)
[2022-02-28] MEDS ORDERED: Lidocaine -MPF 2% 2 ML VIAL ONE (07:17)
[2022-02-28] MEDS ORDERED: *HR* FentaNYL (PF) 100 MCG/2 ML VIAL ONE (07:17)
[2022-02-28] MEDS ORDERED: Ondansetron 4 MG/2 ML VIAL ONE (07:17)
[2022-02-28] MEDS ORDERED: *HR* Rocuronium Bromide 50 MG/5 ML VIAL ONE (07:17)
[2022-02-28] MEDS ORDERED: *HR* Succinylcholine 200 MG/10 ML VIAL IVP ONE (07:17)
[2022-02-28] MEDS ORDERED: Ketamine HCL *QUVA* 50mg (1mL) SYRINGE ONE (07:20)
[2022-02-28] MEDS: DilTIAZem CD (24hr) 240 MG CAP.ER.24H PO SCH (07:43)
[2022-02-28] MEDS: Multivit/Ca/Min/Fe/FA 1 TAB TABLET PO SCH (07:44)
[2022-02-28] MEDS ORDERED: Vancomycin 1,500 MG/265 ML IV.SOLN IVPB SCH (09:00)
[2022-02-28] MEDS: *HR* FentaNYL (PF) 100 MCG/2 ML VIAL IVP PRN ×3 (11:02→11:22)
[2022-02-28] MEDS ORDERED: Acetaminophen 325 MG TABLET PO PRN (11:43)
[2022-02-28] MEDS ORDERED: Melatonin 3 MG TABLET PO PRN (11:43)
[2022-02-28] MEDS ORDERED: Naloxone 0.4 MG/ML INJ IVP PRN (11:43)
[2022-02-28] MEDS ORDERED: Ondansetron ODT 4 MG TAB.RAPDIS SL PRN (11:43)
[2022-02-28] MEDS ORDERED: Levalbuterol Neb 1.25 MG/3 ML IH PRN (11:43)
[2022-02-28] MEDS: *HR* OxyCODONE Immed Rel 5 MG TABLET PO PRN ×2 (14:30→19:52)
[2022-02-28] MEDS: Vancomycin 1,500 MG/265 ML IV.SOLN IVPB SCH (20:20)
[2022-03-01] MEDS ORDERED: *HR* Labetalol 20 MG/4 ML SYRINGE IVP ONE (01:09)
[2022-03-01] MEDS: Piperacillin/Tazobactam 3.375 GM in 0.9 % Sodium Chloride Mini Bag 100 ML IVPB SCH ×2 (03:08→12:33)
[2022-03-01] MEDS ORDERED: Valsartan 160 MG TABLET PO SCH (09:00)
[2022-03-01] MEDS ORDERED: DilTIAZem CD (24hr) 240 MG CAP.ER.24H PO SCH (09:00)
[2022-03-01] MEDS ORDERED: NON-FORMULARY MEDICATION 1 EACH EACH (Valsartan/Hydrochlorothiazide [Diovan Hct 160-12.5 M PO SCH (09:00)
[2022-03-01] MEDS ORDERED: hydroCHLOROthiazide 25 MG TABLET PO SCH (09:00)
[2022-03-01 09:16] LABS: Basophils # 0.1 K/mcL (0.0-0.2); Basophils % 0.5 %; Hematocrit 38.2 % (35.3-44.9); Hemoglobin 12.7 g/dL (11.5-15.4); Immature Granulocytes % 1.6 % (0-4); Lymphocytes # 0.9 K/mcL (0.6-4.6); Lymphocytes % 6.3 %; Mean Corpuscular HGB Conc 33.2 g/dL (31.6-35.5); Mean Corpuscular Hemoglobin 31.5 pg (28.0-33.3); Mean Corpuscular Volume 94.8 fL (83.0-100.0); Mean Platelet Volume 12.9 fL (9.4-12.4); Monocytes % 6.9 %; Platelet Count 129 K/mcL (140-400); Red Blood Count 4.03 M/mcL (3.82-4.97); Red Cell Distribution Width 14.4 % (11.5-14.5); Segmented Neutrophils % 84.7 %
[2022-03-01 09:36] LABS: Albumin 3.7 g/dL (3.5-5.7); Albumin/Globulin Ratio 1.3 (1.1-2.2); Bilirubin,Total 2.2 mg/dL (0.3-1.0); Calcium 8.9 mg/dL (8.6-10.3); Globulin 2.9 g/dL (2.4-3.5); Potassium 3.7 mEq/L (3.5-5.1); Total Protein 6.6 g/dL (6.4-8.9)
[2022-03-01] MEDS: Vancomycin 1,500 MG/265 ML IV.SOLN IVPB SCH (09:41)
[2022-03-01 09:49] LABS: White Blood Count 14.2 K/mcL (4.3-11.1)
[2022-03-01 10:40] VITALS: PULSE 88; O2SAT 96
[2022-03-01 11:53] VITALS: BP 169/89; TEMP 97.7
== END 2022-03-01 13:26 | disposition home or self-care (01) | DRG 853 ==
LOC: 2NNU 15:54 → EMEROOARM 15:54 → 2NNU 02-26 01:10 → SUATTDRO 02-26 01:28
PROVIDERS: ADMIT Student in an Organized Health Care Education/Training Program; ATTEND Family Medicine